=== PATIENT | male | born 1945 | race Caucasian/White ===

== ENCOUNTER 2021-03-04 18:20 | Inpatient (IN) | payer MEDICARE, OTHER ==
--- NOTE | 2021-03-04 18:59 | ED ---
General Adult HPI - General Chief complaint: Neuro Symptoms/Deficit Stated complaint: Poss stroke Time Seen by Provider: 03/04/21 18:25 Source: patient, family, RN notes reviewed, old records reviewed Mode of arrival: wheelchair Limitations: physical limitation - History of Present Illness Initial comments: This is a 76-year-old male who presents to the emergency department complaining of right-sided sensation changes. Patient states it started yesterday at 9 AM he noticed a decreased sensation in his right arm and his right leg. Patient also states he's had intermittent loss of vision in the lateral right visual field. Patient also was noticed some memory loss since yesterday as well per the states he asks the same question multiple times and just today. Patient has noticed he is not remembering things well suggested as well. Patien t denies any headache. Patient denies any recent fever chills or cough. Patient states he has a past medical history significant for heart attacks and multiple stent placements. Patient denies any high blood pressure high cholesterol smoking. Patient denies any diabetes. Patient denies any chest pain or palpitations. Patient denies any difficulty breathing shortness of breath. Patient denies any abdominal pain patient denies nausea vomiting diarrhea. Patient denies any swelling to legs or calf tenderness. Patient states his symptoms of decreased sensation seemed to improve but they are still there in the arm and the leg the visual deficit in the right lateral field is gone at the moment but the states his memory short-term memory goes is still there. - Related Data Home Medications Medication Instructions Recorded Confirmed Aspirin EC [Ecotrin] 325 mg PO DAILY 03/04/21 03/04/21 Cyanocobalamin [Vitamin B-12] 500 mcg PO DAILY 03/04/21 03/04/21 Ubidecarenone [Co Q-10] 200 mg PO DAILY 03/04/21 03/04/21 Allergies Allergy/AdvReac Type Severity Reaction Status Date / Time No Known Allergies Allergy Verified 03/04/21 19:51 Review of Systems ROS Statement: Those systems with pertinent positive or pertinent negative responses have been documented in the HPI. ROS Other: All systems not noted in ROS Statement are negative. Past Medical History Past Medical History: Coronary Artery Disease (CAD) History of Any Multi-Drug Resistant Organisms: None Reported Past Surgical History: Heart Catheterization With Stent Additional Past Surgical History / Comment(s): stents x 5 Past Psychological History: No Psychological Hx Reported Smoking Status: Never smoker Past Alcohol Use History: None Reported Past Drug Use History: None Reported General Exam - General Exam Comments Initial Comments: GENERAL: Patient is well-developed and well-nourished. Patient is nontoxic and well- hydrated and is in no acute distress. ENT: Neck is soft and supple. No significant lymphadenopathy is noted. Oropharynx is clear. Moist mucous membranes. Neck has full range of motion without eliciting any pain. EYES: The sclera were anicteric and conjunctiva were pink and moist. Extraocular movements were intact and pupils were equal round and reactive to light. Eyelids were unremarkable. PULMONARY: Unlabored respirations. Good breath sounds bilaterally. No audible rales rhonchi or wheezing was noted. CARDIOVASCULAR: There is a regular rate and rhythm without any murmurs gallops or rubs. ABDOMEN: Soft and nontender with normal bowel sounds. SKIN: Skin is clear with no lesions or rashes and otherwise unremarkable. NEUROLOGIC: Patient is alert and oriented x3. Cranial nerves II through XII are grossly intact. Patient has no visual field deficit at the moment. Patient has decreased sensation in the arm and the leg but he can still feel light touch. He states he does not feel the same as other side. states on the way here he asked the same question 4 times. MUSCULOSKELETAL: Normal extremities with adequate strength and full range of motion. LYMPHATICS: No significant lymphadenopathy is noted PSYCHIATRIC: Normal psychiatric evaluation. Limitations: physical limitation Course Vital Signs 03/04/21 03/04/21 18:24 19:48 Temperature 97.7 F Pulse Rate 66 64 Respiratory 20 20 Rate Blood Pressure 163/76 191/105 O2 Sat by Pulse 97 96 Oximetry Medical Decision Making - Medical Decision Making EKG shows sinus rhythm with occasional PAC at 65 bpm NV interval 270 QRS is 98 QT interval 46 QTC is 422 per patient's EKG shows no ST segment elevation or depression. CT of the head showed 2 old infarcts on the left one of the temporal region where the occipital area. No acute abnormality was noted. CT of the head and neck showed possible stenosis in the posterior circulation no aneurysms noted. I spoke with Dr. Martinez at this point he wanted the patient started on 150 mg of Plavix and 75 mg Plavix daily - Lab Data Result diagrams: 03/04/21 18:55 03/04/21 18:55 Lab Results 03/04/21 03/04/21 03/04/21 Range/Units 18:55 18:55 18:55 WBC 6.7 (3.8-10.6) k/uL RBC 5.06 (4.30-5.90) m/uL Hgb 16.5 (13.0-17.5) gm/dL Hct 47.2 (39.0-53.0) % MCV 93.4 (80.0-100.0) fL MCH 32.6 (25.0-35.0) pg MCHC 35.0 (31.0-37.0) g/dL RDW 12.6 (11.5-15.5) % Plt Count 232 (150-450) k/uL MPV 7.8 Neutrophils % 70 % Lymphocytes % 18 % Monocytes % 7 % Eosinophils % 3 % Basophils % 1 % Neutrophils # 4.7 (1.3-7.7) k/uL Lymphocytes # 1.2 (1.0-4.8) k/uL Monocytes # 0.4 (0-1.0) k/uL Eosinophils # 0.2 (0-0.7) k/uL Basophils # 0.1 (0-0.2) k/uL PT 9.7 (9.0-12.0) sec INR 0.9 (<1.2) APTT 24.7 (22.0-30.0) sec Sodium 139 (137-145) mmol/L Potassium 4.2 (3.5-5.1) mmol/L Chloride 106 (98-107) mmol/L Carbon Dioxide 22 (22-30) mmol/L Anion Gap 11 mmol/L BUN 23 H (9-20) mg/dL Creatinine 0.99 (0.66-1.25) mg/dL Est GFR (CKD-EPI)AfAm 85 (>60 ml/min/1.73 sqM) Est GFR (CKD-EPI)NonAf 73 (>60 ml/min/1.73 sqM) Glucose 122 H (74-99) mg/dL Calcium 9.7 (8.4-10.2) mg/dL Total Bilirubin 0.6 (0.2-1.3) mg/dL AST 25 (17-59) U/L ALT 14 (4-49) U/L Alkaline Phosphatase 73 (38-126) U/L Troponin I (0.000-0.034) ng/mL Total Protein 6.8 (6.3-8.2) g/dL Albumin 4.4 (3.5-5.0) g/dL 03/04/21 Range/Units 18:55 WBC (3.8-10.6) k/uL RBC (4.30-5.90) m/uL Hgb (13.0-17.5) gm/dL Hct (39.0-53.0) % MCV (80.0-100.0) fL MCH (25.0-35.0) pg MCHC (31.0-37.0) g/dL RDW (11.5-15.5) % Plt Count (150-450) k/uL MPV Neutrophils % % Lymphocytes % % Monocytes % % Eosinophils % % Basophils % % Neutrophils # (1.3-7.7) k/uL Lymphocytes # (1.0-4.8) k/uL Monocytes # (0-1.0) k/uL Eosinophils # (0-0.7) k/uL Basophils # (0-0.2) k/uL PT (9.0-12.0) sec INR (<1.2) APTT (22.0-30.0) sec Sodium (137-145) mmol/L Potassium (3.5-5.1) mmol/L Chloride (98-107) mmol/L Carbon Dioxide (22-30) mmol/L Anion Gap mmol/L BUN (9-20) mg/dL Creatinine (0.66-1.25) mg/dL Est GFR (CKD-EPI)AfAm (>60 ml/min/1.73 sqM) Est GFR (CKD-EPI)NonAf (>60 ml/min/1.73 sqM) Glucose (74-99) mg/dL Calcium (8.4-10.2) mg/dL Total Bilirubin (0.2-1.3) mg/dL AST (17-59) U/L ALT (4-49) U/L Alkaline Phosphatase (38-126) U/L Troponin I 0.017 (0.000-0.034) ng/mL Total Protein (6.3-8.2) g/dL Albumin (3.5-5.0) g/dL Critical Care Time Critical Care Time: Yes Total Critical Care Time: 35 Disposition Clinical Impression: Cerebrovascular accident (CVA) Disposition: ADMITTED IP TO THIS HOSP Referrals: Ameya Shane MD [Primary Care Provider] - 1-2 days Time of Disposition: 20:20
[2021-03-04 19:06] LABS: Basophils # (A) 0.1 k/uL (0-0.2); Basophils % (A) 1 %; Eosinophils # (A) 0.2 k/uL (0-0.7); Eosinophils % (A) 3 %; HCT 47.2 % (39.0-53.0); HGB 16.5 gm/dL (13.0-17.5); Lymphocytes # (A) 1.2 k/uL (1.0-4.8); Lymphocytes % (A) 18 %; MCH 32.6 pg (25.0-35.0); MCV 93.4 fL (80.0-100.0); Mean Platelet Volume 7.8; Monocytes # (A) 0.4 k/uL (0-1.0); Monocytes % (A) 7 %; Neutrophils # (A) 4.7 k/uL (1.3-7.7); Neutrophils % (A) 70 %; Platelet Count 232 k/uL (150-450); RBC 5.06 m/uL (4.30-5.90); RDW 12.6 % (11.5-15.5); WBC 6.7 k/uL (3.8-10.6)
[2021-03-04 19:16] LABS: INR 0.9 (<1.2); Partial Thromboplastin Time 24.7 sec (22.0-30.0); Prothrombin Time 9.7 sec (9.0-12.0)
[2021-03-04 19:22] LABS: Albumin 4.4 g/dL (3.5-5.0); Calcium 9.7 mg/dL (8.4-10.2); Potassium 4.2 mmol/L (3.5-5.1); Total Bilirubin 0.6 mg/dL (0.2-1.3); Total Protein 6.8 g/dL (6.3-8.2)
--- NOTE | 2021-03-04 19:35 | CT ---
EXAMINATION TYPE: CT brain wo con for TPA DATE OF EXAM: 03/04/2021 COMPARISON: None HISTORY: Right sided numbness and visual disturbance. CT DLP: 1177.8 mGycm Automated exposure control for dose reduction was used. Images obtained of the brain without contrast. There is cerebral cortical atrophy. There is no mass effect nor midline shift. There is no sign of in tracranial hemorrhage. There is 2 cm area of cortical hypodensity medial left occipital lobe consiste nt with an old cortical infarct. There is a similar 1.7 cm area of hypodensity in the deep left tempo ral lobe cortex. The calvarium is intact. Skull base is intact. IMPRESSION: Old left small occipital lobe cortical infarct. Old small posterior deep left temporal lobe ischemic infarct. No hemorrhage.
--- NOTE | 2021-03-04 20:00 | CT ---
EXAMINATION TYPE: CT angio head neck DATE OF EXAM: 03/04/2021 COMPARISON: None HISTORY: Right sided numbness and visual disturbance. CT DLP: 504 mGycm Automated exposure control for dose reduction was used. CONTRAST: Performed with IV Contrast, patient injected with 65 mL of Isovue 370. Images obtained from the aortic arch to the vertex of the brain with IV contrast. There are 3-D post processed images. There is normal branching pattern of the great vessels on the aortic arch. There is atheromatous carver ge in the aortic arch. There is no aneurysm. There is arterial flow in both subclavian arteries. Ther e is some plaque formation and mild luminal narrowing proximal left subclavian artery. There is arterial flow in the common internal and external carotid arteries bilaterally. There is art erial flow in both vertebral arteries. There is no evidence of carotid or vertebral artery aneurysm o r dissection. There is some kinking of the proximal left internal carotid artery. Lumen narrowing is 50%. I see no evidence of carotid or vertebral artery aneurysm or dissection. I see no hemodynamic st enosis. There is arterial flow in the vertebrobasilar artery system. Basilar artery fills mostly from the lef t side. There is arterial flow in the anterior middle and posterior cerebral arteries bilaterally. There is n o evidence of intracranial aneurysm or neovascularity. There is diminished size of the distal posteri or cerebral arteries bilaterally. The venous sinuses show normal contrast opacification. There is no evidence of mass effect. IMPRESSION: No evidence of hemodynamic stenosis of the neck. There is somewhat diminished arterial size of the posterior cerebral arteries that could relate to st enosis. No aneurysm.
--- NOTE | 2021-03-04 20:02 | XR ---
EXAMINATION TYPE: XR chest 2V DATE OF EXAM: 03/04/2021 COMPARISON: NONE HISTORY: Altered mental status TECHNIQUE: 2 views FINDINGS: Heart and mediastinum are normal. Lungs are clear. Diaphragm is normal. Bony thorax is inta ct. There are chest leads. IMPRESSION: Normal chest. Normal heart.
[2021-03-04] MEDS ORDERED: CLOPIDOGREL 75 MG TAB PO STA (20:18)
[2021-03-04] MEDS ORDERED: ASPIRIN 325 MG TAB PO STA (20:20)
[2021-03-05] MEDS: ASPIRIN 325 MG TAB PO SCH (08:16)
--- NOTE | 2021-03-05 09:24 | P.CNNES ---
History of Present Illness Consult date: 03/04/21 Requesting physician: Andrews Felder Reason for Consult: CVA History of Present Illness: Patient is a 76-year-old male with history of coronary artery disease, otherwise healthy, came to the hospital for neurological symptoms. Patient states that almost for the past 1 month, he has been noticing some dark spot in the visual field on the right side. Sometimes in order to see the TV on the right visual field, he has to turn his head to the right in order to see otherwise it misses in his vision. He saw an eye doctor, and was told that his vision is 20/20 and may have some cataract on the right. Patient's also mentioned that on 02/28/2021 patient was holding a cup of coffee when the cup slipped off his right hand, but they did not feel anything concerning otherwise. Patient states that yesterday he woke up at 6 AM in usual state of health. At around 9 AM he noticed numbness and tingling of the right side involving the face arm and leg. He just felt funny, not normal feeling. The symptoms on the face persisted for couple hours, but symptoms on the right side of arm and leg persisted. He did not seek medical attention. This morning patient's decided to take him to the hospital. As they were coming to the hospital, he asked the same question 4 times "where are we going". He still has some numbness of the right arm in the ulnar distribution. He denies any problem with balance, slurred speech, facial droop or focal weakness. Vital signs on arrival blood pressure 163/76, pulse rate 66 temperature 97.7. Computed tomography scan of head showed old left small occipital lobe cortical infarct. Old small posterior deep left temporal lobe ischemic infarct (to me it appears subacute). No hemorrhage. Patient underwent CTA, which revealed no evidence of hemodynamic stenosis. There is somewhat diminished arterial size of posterior cerebral arteries that could relate to stenosis. No Aneurysm. Chest x-ray showed no acute process. EKG shows sinus rhythm with premature atrial complexes. Minimal voltage criteria for LVH, may be normal variant. Septal infarct, age undetermined. Patient denies history of hypertension for diabetes. Never smoked. He has history of 5 stents in the coronary arteries. He had CO on 01/02/2006. Patient does take aspirin 325 mg, B12, CoQ10. Review of Systems Patient denies any chest pain shortness of breath wheezing or cough. Denies any diplopia. He does have visual disturbance. Denies any trauma. His balance is fine. No history of memory issues. Patient is hard of hearing. All other review of systems reviewed and unremarkable. Past Medical History Past Medical History: Coronary Artery Disease (CAD), Myocardial Infarction (CO) Last Myocardial Infarction Date:: 2005 History of Any Multi-Drug Resistant Organisms: None Reported Past Surgical History: Heart Catheterization With Stent Additional Past Surgical History / Comment(s): stents x 5 Past Anesthesia/Blood Transfusion Reactions: No Reported Reaction Date of Last Stent Placement:: 2009 Past Psychological History: No Psychological Hx Reported Smoking Status: Never smoker Past Alcohol Use History: None Reported Past Drug Use History: None Reported - Past Family History Father Family Medical History: Myocardial Infarction (CO) Mother Family Medical History: Myocardial Infarction (CO) Medications and Allergies Home Medications Medication Instructions Recorded Confirmed Type Aspirin EC [Ecotrin] 325 mg PO DAILY 03/04/21 03/04/21 History Cyanocobalamin [Vitamin B-12] 500 mcg PO DAILY 03/04/21 03/04/21 History Ubidecarenone [Co Q-10] 200 mg PO DAILY 03/04/21 03/04/21 History Allergies Allergy/AdvReac Type Severity Reaction Status Date / Time No Known Allergies Allergy Verified 03/04/21 19:51 Physical Examination - Vital Signs Vital Signs: Vital Signs Temp Pulse Pulse Resp BP BP Pulse Ox 03/05/21 08:00 98.0 F 66 18 162/87 95 03/05/21 04:00 97.3 F L 67 16 174/97 96 03/05/21 02:00 56 L 03/04/21 23:46 97.7 F 56 L 16 190/93 96 03/04/21 23:43 97.7 F 56 L 16 190/93 96 03/04/21 23:25 68 17 177/91 95 03/04/21 23:24 66 16 169/107 97 03/04/21 22:00 65 18 181/114 95 03/04/21 21:00 68 20 174/85 98 03/04/21 20:00 59 L 16 184/98 95 03/04/21 19:48 64 20 191/105 96 03/04/21 18:24 97.7 F 66 20 163/76 97 Intake and Output 03/04/21 03/05/21 03/05/21 22:59 06:59 14:59 Other: Voiding Method Toilet Toilet # Voids 1 Weight 87.09 kg 87.09 kg Patient is a young-looking elderly male in no acute distress. Patient is alert awake oriented to time place and person. Speech and language functions are normal. Attention, concentration and fund of knowledge is adequate. On cranial examination, pupils are equal, round and reacting to light, visual bethea are full on confrontation, extraocular muscles are intact with no nystagmus. Face is symmetric, tongue protrudes to the midline. Palatal elevation and sensation normal, hearing is at least moderately decreased and shoulder shrug normal, facial sensation normal. Shoulder shrug normal. On muscle strength testing, there is no pronator drift and the strength is normal in arms and legs distally and proximally. Deep tendon reflexes are 3 in the upper limbs, 2+ at the knees, 2 ankles and plantars downgoing bilaterally. Sensory to touch is equal with no neglect. Cerebellar function showed no ataxia for [id number] testing. No dysdiadochokinesia. Tone and bulk of muscles normal. Gait normal. On general examination, there is no carotid bruit or murmur, S1-S2 audible. Abdomen is soft nontender. Chest is clear. Peripheral pulses are present. No edema. Results - Laboratory Findings CBC and BMP: 03/04/21 18:55 03/04/21 18:55 Abnormal Lab Findings: Abnormal Labs 03/04/21 18:55 BUN 23 H Glucose 122 H Assessment and Plan Assessment: * Stroke/TIA manifesting with numbness of the right side of the body. * Subacute left occipital lobe infarct with visual disturbance on the right s vaibhav, probably a month ago * Hypertension * Coronary artery disease * Hard of hearing Plan: * Patient has been having recurrent stroke/TIA. Patient is already on aspirin 325 mg. We will give Plavix 150 mg loading dose, followed by 75 mg daily. * MRI of the brain evaluate for acute stroke. * Fasting a.m. lipid panel, hemoglobin A1c * 2-D echo with bubble study. * Continue neuro checks. * Permissive hypertension. * Telemetric monitoring. * We will follow. Discussed with Dr. Felder in detail.
[2021-03-05 09:39] LABS: Chol/HDL Ratio 4.94; LDL Cholesterol,Calculated 99.2 mg/dL (0.0-131.0); VLDL Calculation 38.8 mg/dL (5.00-40.00)
--- NOTE | 2021-03-05 10:33 | ECHOF ---
Referral Reason: MEASUREMENTS -------- HEIGHT: 180.3 cm WEIGHT: 87.1 kg BP: IVSd: 1.4 cm (0.6 - 1.1) LVIDd: 3.8 cm (3.9 - 5.3) LVPWd: 1.4 cm (0.6 - 1.1) EDV(Teich): 62 ml IVSs: 1.7 cm LVIDs: 1.8 cm LVPWs: 2.1 cm %IVS Thck: 26 % ESV(Teich): 10 ml EF(Teich): 84 % %FS: 52 % SV(Teich): 52 ml RVIDd: 2.3 cm (< 3.3) IVC: 19.76 mm Ao Diam: 3.8 cm (2.0 - 3.7) LA Diam: 2.5 cm (2.7 - 3.8) AV Cusp: 2.0 cm (1.5 - 2.6) EPSS: 1.0 cm MV E Joaquin: 0.49 m/s MV DecT: 271 ms MV Dec Marion: 1.8 m/s MV A Joaquin: 0.92 m/s MV E/A Ratio: 0.53 MV PHT: 79 ms MR Vmax: 1.25 m/s MR maxP.20 mmHg AV Vmax: 1.10 m/s AV maxP.88 mmHg TR Vmax: 1.96 m/s TR maxP.33 mmHg RAP: 15.00 mmHg RVSP: 30.33 mmHg MV EF SLOPE: 31.76 mm/s (70 - 150) MV EXCURSION: 14.92 mm (> 18.000) FINDINGS -------- This was a technically difficult study with suboptimal views. The left ventricular size is normal. There is moderate concentric left ventricular hypertrophy. O verall left ventricular systolic function is low-normal with, an EF between 50 - 55 %. Basal infero lateral hypokinesis. The right ventricle is normal in size. The left atrial size is normal. The right atrial size is normal. Anshul used Unable to perform bubblr study due to poor suboptimal images. The aortic valve is trileaflet and appears structurally normal. The mitral valve is normal. There is trace mitral regurgitation. The tricuspid valve appears structurally normal. Trace tricuspid regurgitation present. Right iva tricular systolic pressure is normal at < 35 mmHg. There is no pulmonic regurgitation present. The aortic root size is normal. The inferior vena cava is mildly dilated. There is no pericardial effusion. CONCLUSIONS -------- 1. The left ventricular size is normal. 2. There is moderate concentric left ventricular hypertrophy. 3. Overall left ventricular systolic function is low-normal with, an EF between 50 - 55 %. 4. Basal inferolateral hypokinesis. 5. Lumason used 6. Unable to perform bubblr study due to poor suboptimal images. 7. There is trace mitral regurgitation. 8. Trace tricuspid regurgitation present. 9. The inferior vena cava is mildly dilated. 10. There is no pericardial effusion. OCULAR CARE AIDE: Cassidy Gonzalez RDCS
--- NOTE | 2021-03-05 13:59 | P.HPIM ---
History of Present Illness 76-year-old male was admitted for possibly of TIA. Patient came in with the right-sided visual field defects and oxfords in the right side while watching TV along with the weakness in the right side along with tingling numbness in the right side including face. All the symptoms resolved at this time. Patient does have history of coronary artery disease patient does state Aspirin at home. 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 Patient underwent extensive evaluation patient had a CT of the head and CT angios the head which is only significant for old small posterior left temporal lobe and the left occipital lobe infarcts. As per the neurologist these a subacute infarcts and patient's symptoms started yesterday chest x-ray did not show any significant abnormality echocardiogram was done which was showing wall watch temperament is probably from his previous myocardial infarction., Normal ejection fraction and no intraventricular thrombus. REVIEW OF SYSTEMS: CONSTITUTIONAL: No fever, no malaise, no fatigue. HEENT: No recent visual problems or hearing problems. Denied any sore throat. CARDIOVASCULAR: No chest pain, orthopnea, PND, no palpitations, no syncope. PULMONARY: No shortness of breath, no cough, no hemoptysis. GASTROINTESTINAL: No diarrhea, no nausea, no vomiting, no abdominal pain. NEUROLOGICAL: As mentioned in HPI HEMATOLOGICAL: Denies any bleeding or petechiae. GENITOURINARY: Denies any burning micturition, frequency, or urgency. MUSCULOSKELETAL/RHEUMATOLOGICAL: Denies any joint pain, swelling, or any muscle pain. ENDOCRINE: Denies any polyuria or polydipsia. The rest of the 14-point review of systems is negative. PHYSICAL EXAMINATION: GENERAL: The patient is alert and oriented x3, not in any acute distress. Well developed, well nourished. HEENT: Pupils are round and equally reacting to light. EOMI. No scleral icterus. No conjunctival pallor. Normocephalic, atraumatic. No pharyngeal erythema. No thyromegaly. CARDIOVASCULAR: S1 and S2 present. No murmurs, rubs, or gallops. PULMONARY: Chest is clear to auscultation, no wheezing or crackles. ABDOMEN: Soft, nontender, nondistended, normoactive bowel sounds. No palpable organomegaly. MUSCULOSKELETAL: No joint swelling or deformity. EXTREMITIES: No cyanosis, clubbing, or pedal edema. NEUROLOGICAL as mentioned in HPI SKIN: No rashes. Assessment and plan --Possible TIA: Patient had either old or subacute infarcts the left occipital and left temporal areas. MRA is pending. Patient most probably will be discharged later today on aspirin and Plavix for 3 weeks followed by just Plavix. Patient cannot take statin due to above-mentioned reasons -Coronary artery disease with the history of multiple stents in the past - frequent PVCs without any evidence of atrial fibrillation DVT prophylaxis: Ambulation Past Medical History Past Medical History: Coronary Artery Disease (CAD), Myocardial Infarction ([place]) Last Myocardial Infarction Date:: 2005 History of Any Multi-Drug Resistant Organisms: None Reported Past Surgical History: Heart Catheterization With Stent Additional Past Surgical History / Comment(s): stents x 5 Past Anesthesia/Blood Transfusion Reactions: No Reported Reaction Date of Last Stent Placement:: 2009 Past Psychological History: No Psychological Hx Reported Smoking Status: Never smoker Past Alcohol Use History: None Reported Past Drug Use History: None Reported - Past Family History Father Family Medical History: Myocardial Infarction ([place]) Mother Family Medical History: Myocardial Infarction ([place]) Medications and Allergies Home Medications Medication Instructions Recorded Confirmed Type Aspirin EC [Ecotrin] 325 mg PO DAILY 03/04/21 03/04/21 History Cyanocobalamin [Vitamin B-12] 500 mcg PO DAILY 03/04/21 03/04/21 History Ubidecarenone [Co Q-10] 200 mg PO DAILY 03/04/21 03/04/21 History Allergies Allergy/AdvReac Type Severity Reaction Status Date / Time No Known Allergies Allergy Verified 03/04/21 19:51 Physical Exam Vitals: Vital Signs Temp Pulse Pulse Resp BP BP Pulse Ox 03/05/21 12:00 83 18 144/75 98 03/05/21 08:00 98.0 F 66 18 162/87 95 03/05/21 04:00 97.3 F L 67 16 174/97 96 03/05/21 02:00 56 L 03/04/21 23:46 97.7 F 56 L 16 190/93 96 03/04/21 23:43 97.7 F 56 L 16 190/93 96 03/04/21 23:25 68 17 177/91 95 03/04/21 23:24 66 16 169/107 97 03/04/21 22:00 65 18 181/114 95 03/04/21 21:00 68 20 174/85 98 03/04/21 20:00 59 L 16 184/98 95 03/04/21 19:48 64 20 191/105 96 03/04/21 18:24 97.7 F 66 20 163/76 97 Intake and Output 03/04/21 03/05/21 03/05/21 22:59 06:59 14:59 Other: Voiding Method Toilet Toilet # Voids 1 Weight 87.09 kg 87.09 kg Results CBC & Chem 7: 03/04/21 18:55 03/04/21 18:55 Labs: Abnormal Lab Results - Last 24 Hours (Table) 03/04/21 03/04/21 Range/Units 18:55 18:55 BUN 23 H (9-20) mg/dL Glucose 122 H (74-99) mg/dL Triglycerides 194.0 H (0.0-149.0) mg/dL HDL Cholesterol 35.0 L (40.0-60.0) mg/dL Thrombosis Risk Factor Assmnt - Choose All That Apply Any of the Below Risk Factors Present?: Yes Each Factor Represents 1 point: Obesity (BMI >25) Other Risk Factors: Yes Each Risk Factor Represents 3 Points: Age 75 years or older Thrombosis Risk Factor Assessment Total Risk Factor Score: 4 Thrombosis Risk Factor Assessment Level: Moderate Risk
--- NOTE | 2021-03-05 14:02 | P.DS ---
Providers Date of admission: 03/04/21 20:20 Attending physician: Bob Lowe Consults: 03/04/21 20:21 Consult Physician Routine Consulting Provider: Monik Washington Consult Reason/Comments: CVA Do you want consulting provider notified?: Already Contacted Primary care physician: Ameya Shane [facility] Course: Refer to my HPI further details Plan - Discharge Summary Discharge Rx Participant: No New Discharge Prescriptions: New Aspirin 325 mg PO DAILY #21 tab Clopidogrel [Plavix] 75 mg PO DAILY #30 tab No Action Cyanocobalamin [Vitamin B-12] 500 mcg PO DAILY Aspirin EC [Ecotrin] 325 mg PO DAILY Ubidecarenone [Co Q-10] 200 mg PO DAILY Discharge Medication List Aspirin EC [Ecotrin] 325 mg PO DAILY 03/04/21 [History] Cyanocobalamin [Vitamin B-12] 500 mcg PO DAILY 03/04/21 [History] Ubidecarenone [Co Q-10] 200 mg PO DAILY 03/04/21 [History] Aspirin 325 mg PO DAILY #21 tab 03/05/21 [Rx] Clopidogrel [Plavix] 75 mg PO DAILY #30 tab 03/05/21 [Rx] Follow up Appointment(s)/Referral(s): Ameya Shane MD [Primary Care Provider] - 3 Days Nora Mckenzie MD [REFERRING] - 1 Week Discharge Disposition: HOME SELF-CARE
--- NOTE | 2021-03-05 17:50 | MR ---
EXAMINATION TYPE: MR brain wo con DATE OF EXAM: 03/05/2021 COMPARISON: 03/04/2021 HISTORY: Right sided numbness, visual disturbance. CONTRAST: Performed utilizing 0 mL intravenous Gadavist gadolinium contrast. TECHNIQUE: Multiplanar, multiecho imaging on a 3.0 Natacha magnet is performed through the brain. Stud y is performed within 24 hours of arrival to the hospital. The craniovertebral junction is normal. The pituitary is normal. Diffusion-weighted imaging is performed. Multiple hyperintensities are within the medial left tempor al lobe and within the inferior left occipital lobe compatible small focal areas of infarct. There is some hyperintensity within the left thalamus suspicious for small areas of acute ischemic change. Hyperintensities are evident at the location of the infarcts on the T2 and inversion recovery weighte d sequences. Some mild additional subcortical and periventricular white matter changes are present on inversion recovery which may be chronic white matter ischemic changes. No left occipital lobe infarct is present. Ventricles and sulci are prominent for the patient age. IMPRESSIONS: 1. Acute ischemic change within the medial temporal lobe, left occipital lobe, and couple of punctate areas within the thalamus. 2. Some additional chronic mild deep white matter changes may also be present. A Red level critical message alert has been initiated for Bob Lowe MD via the [employer] on 03/05/2021 5:47 PM. This message alert has been sent to Bob Lowe MD via the preferences provided by the clinician for the receipt of Radiology Critical Findings. Message ID [id number].
[2021-03-05] MEDS: CLOPIDOGREL 75 MG TAB PO SCH (18:26)
[2021-03-05 18:56] LABS: Hemoglobin A1C 4.9 % (4.0-6.0)
--- NOTE | 2021-03-06 09:01 | P.CRDCN ---
History of Present Illness Consult date: 03/06/21 History of present illness: HISTORY OF PRESENT ILLNESS: This is a 76-year-old male with a past medical history significant for coronary artery disease with previous stenting 5, last in 2009 in [place] per patient. Patient follows with a materials management clerk in [place], [place]. We have been asked to see the patient in consultation for event monitor. Patient examined at the bedside. Patient states he presented to the hospital secondary to numbness and tingling in his right upper and lower extremities. Patient denied any difficulty with his speech. Patient does report over the past 2 months he has been having some blurred vision. Patient states he was told he had a mini stroke about a month ago. Patient denies any history of atrial fibrillation. Telemetry currently reveals sinus mechanism with no signs of atrial fibrillation. The patient de nies chest pain or pressure. She denies shortness of breath. He denies feeling palpitations. Patient continues to report some numbness and tingling in his right arm. EKG reveals sinus mechanism with no signs of acute ischemia Chest xray normal chest. Normal heart. CT of the brain old left small occipital lobe cortical infarct. Old small posterior deep left temporal lobe ischemic infarct. No hemorrhage. MRI of the brain: Acute ischemic changes within the medial temporal lobe, left occipital lobe, and couple of punctate areas within the thalmus. Some additional chronic mild deep white matter changes may also be present. Echocardiogram completed revealed ejection fraction 50-55%. Basal inferior lateral hypokinesis, trace mitral regurgitation. Trace mitral regurgitation. Laboratory data: WBC 6.7. Hemoglobin 16.5. Platelet count 232. Sodium 139. Potassium 4.2. BUN 23. Creatinine 0.99. Current home cardiac medications include aspirin 325 mg daily REVIEW OF SYSTEMS: At the time of my exam: CONSTITUTIONAL: Denies fever or chills. HEENT: Denies blurred vision, vision changes, or eye pain. Denies hemoptysis CARDIOVASCULAR: Denies chest pain. Denies orthopnea. Denies PND. Denies palpitations RESPIRATORY: Denies shortness of breath. GASTROINTESTINAL: Denies abdominal pain. Denies nausea or vomiting. HEMATOLOGIC: Denies bleeding disorders. GENITOURINARY: Denies any blood in urine. SKIN: Denies pruitis. Denies rash. PHYSICAL EXAM: VITAL SIGNS: Reviewed. GENERAL: Well-developed in no acute distress. HEENT: Head is normocephalic. Pupils are equal, round. Sclerae anicteric. Mucous membranes of the mouth are moist. Neck supple. No JVD or thyromegaly LUNGS: Respirations even and unlabored. Lungs essentially clear to auscultation bilaterally. HEART: Regular rate and rhythm. S1 and S2 heard. ABDOMEN: Soft. Nondistended. Nontender. EXTREMITIES: Reports numbness and tingling in right upper extremity. Normal ran ge of motion. No clubbing or cyanosis. Peripheral pulses intact. No lower extremity edema NEUROLOGIC: Awake and alert. Oriented x 3. ASSESSMENT: Right-sided numbness and tingling Acute CVA Blurred vision 2-3 months Subacute CVA Coronary artery disease with previous stenting 5, last in 2009 per patient PLAN: Continue aspirin and plavix per neurology Add lipitor 40mg daily Continue telemetry monitoring Patient will receive an event monitor today Further recommendations pending patient course Nurse practitioner note has been reviewed by physician. Signing provider agrees with the documented findings, assessment, and plan of care. Past Medical History Past Medical History: Coronary Artery Disease (CAD), Myocardial Infarction ([place]) Last Myocardial Infarction Date:: 2005 History of Any Multi-Drug Resistant Organisms: None Reported Past Surgical History: Heart Catheterization With Stent Additional Past Surgical History / Comment(s): stents x 5 Past Anesthesia/Blood Transfusion Reactions: No Reported Reaction Date of Last Stent Placement:: 2009 Past Psychological History: No Psychological Hx Reported Smoking Status: Never smoker Past Alcohol Use History: None Reported Past Drug Use History: None Reported - Past Family History Father Family Medical History: Myocardial Infarction ([place]) Mother Family Medical History: [place]ocardial Infarction ([place]) Medications and Allergies Home Medications Medication Instructions Recorded Confirmed Type Aspirin EC [Ecotrin] 325 mg PO DAILY 03/04/21 03/04/21 History Cyanocobalamin [Vitamin B-12] 500 mcg PO DAILY 03/04/21 03/04/21 History Ubidecarenone [Co Q-10] 200 mg PO DAILY 03/04/21 03/04/21 History Aspirin 325 mg PO DAILY #21 tab 03/05/21 Rx Clopidogrel [Plavix] 75 mg PO DAILY #30 tab 03/05/21 Rx Allergies Allergy/AdvReac Type Severity Reaction Status Date / Time No Known Allergies Allergy Verified 03/04/21 19:51 Physical Exam Vitals: Vital Signs Temp Pulse Resp BP Pulse Ox 03/06/21 04:00 97.6 F 60 18 167/81 98 03/06/21 02:00 57 L 16 03/06/21 00:00 98.1 F 57 L 16 172/92 94 L 03/05/21 20:00 97.3 F L 61 18 142/87 95 03/05/21 16:00 85 18 158/95 98 03/05/21 12:00 83 18 144/75 98 Intake and Output 03/05/21 03/06/21 03/06/21 22:59 06:59 14:59 Intake Total 780 Output Total 480 Balance -480 780 Intake: Oral 780 Output: Urine 480 Other: Voiding Method Toilet Toilet # Voids 1 1 Weight 84.3 kg Results 03/04/21 18:55 03/04/21 18:55 Lipids 03/04/21 Range/Units 18:55 Triglycerides 194.0 H (0.0-149.0) mg/dL Cholesterol 173 (0-200) mg/dL HDL Cholesterol 35.0 L (40.0-60.0) mg/dL Cholesterol/HDL Ratio 4.94 Current Medications Generic Name Dose Route Start Last Admin Trade Name Freq PRN Reason Stop Dose Admin Aspirin 325 mg 03/05/21 09:00 03/05/21 08:16 Aspirin 325 Mg Tab PO 325 mg DAILY ROXIE Administration Clopidogrel Bisulfate 75 mg 03/05/21 17:00 03/05/21 18:26 Clopidogrel 75 Mg Tab PO 75 mg DAILY ROXIE Administration Famotidine 20 mg 03/06/21 09:00 Famotidine 20 Mg/2 Ml Vial IV Q12HR ROXIE Heparin Sodium (Porcine) 5,000 unit 03/06/21 09:00 Heparin Sodium,Porcine/Pf 5,000 Unit/0.5 Ml Syringe SQ Q12HR ROXIE Intake and Output 03/05/21 03/06/21 03/06/21 22:59 06:59 14:59 Intake Total 780 Output Total 480 Balance -480 780 Intake: Oral 780 Output: Urine 480 Other: Voiding Method Toilet Toilet # Voids 1 1 Weight 84.3 kg 03/04/21 18:55 03/04/21 18:55
[2021-03-06] MEDS: ASPIRIN 325 MG TAB PO SCH (09:33)
[2021-03-06] MEDS: CLOPIDOGREL 75 MG TAB PO SCH (09:33)
[2021-03-06] MEDS: FAMOTIDINE 20 MG/2 ML VIAL IV SCH ×2 (09:33→20:11)
[2021-03-06] MEDS: HEPARIN SODIUM,PORCINE/PF 5,000 UNIT/0.5 ML SYRINGE SQ SCH ×2 (09:33→20:11)
--- NOTE | 2021-03-06 14:42 | P.PN ---
Subjective 76-year-old male was admitted for possibly of TIA. Patient came in with the right-sided visual field defects and oxfords in the right side while watching TV along with the weakness in the right side along with tingling numbness in the right side including face. All the symptoms resolved at this time. Patient does have history of coronary artery disease patient does state Aspirin at home. 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 Patient underwent extensive evaluation patient had a CT of the head and CT angios the head which is only significant for old small posterior left temporal lobe and the left occipital lobe infarcts. As per the neurologist these a subacute infarcts chest x-ray did not show any significant abnormality echocardiogram was done which was showing wall watch temperament is probably from his previous myocardial infarction., Normal ejection fraction and no intraventricular thrombus. MRI of the brain showing acute ischemic changes within the medial temporal lobe, left occipital lobe and couple of punctate areas within the limits Objective - Vital Signs Vital signs: Vital Signs Temp 98.1 F 03/06/21 12:00 Pulse 68 03/06/21 14:00 Resp 18 03/06/21 14:00 BP 113/77 03/06/21 08:06 Pulse Ox 98 03/06/21 12:00 Intake & Output 03/05/21 03/06/21 03/06/21 18:59 06:59 18:59 Intake Total 2059 Output Total 480 Balance -480 2059 Weight 84.3 kg Intake: Oral 2059 Output: Urine 480 Other: Voiding Method Toilet Toilet Toilet # Voids 3 1 - Exam GENERAL: The patient is alert and oriented x3, not in any acute distress. Well developed, well nourished. HEENT: Pupils are round and equally reacting to light. EOMI. No scleral icterus. No conjunctival pallor. Normocephalic, atraumatic. No pharyngeal erythema. No thyromegaly. CARDIOVASCULAR: S1 and S2 present. No murmurs, rubs, or gallops. PULMONARY: Chest is clear to auscultation, no wheezing or crackles. ABDOMEN: Soft, nontender, nondistended, normoactive bowel sounds. No palpable organomegaly. MUSCULOSKELETAL: No joint swelling or deformity. EXTREMITIES: No cyanosis, clubbing, or pedal edema. NEUROLOGICAL: Gross neurological examination did not reveal any focal deficits. SKIN: No rashes. no petechiae. - Labs CBC & Chem 7: 03/04/21 18:55 03/04/21 18:55 Assessment and Plan Assessment: Acute multiple strokes,MRI of the brain showing acute ischemic changes within the medial temporal lobe, left occipital lobe and couple of punctate areas within the limits. Clinically complaining of from right UE numbness History of coronary artery disease Frequent PVC without evidence of atrial fibrillation Plan: This is a pleasant 76 years old male who presents with acute stroke. Continue with aspirin and Plavix per neurologist. Hopper Operator of the case, recommended event monitor Check carotid duplex Labs and medication were reviewed.. Continue same treatment. Continue with symptomatic treatment. Resume home medication. Monitor lytes and vitals. DVT and GI prophylaxis. Further recommendationsas per clinical course of the patient DVT prophylaxis: Subcutaneous heparin GI Prophylaxis: Pepcid
[2021-03-06] MEDS ORDERED: ATORVASTATIN 40 MG TAB PO SCH (21:00)
--- NOTE | 2021-03-06 21:21 | US ---
EXAMINATION TYPE: US carotid duplex BILAT DATE OF EXAM: 03/06/2021 COMPARISON: US, CT CLINICAL HISTORY: stroke. Stroke. Previous smoker. EXAM MEASUREMENTS: RIGHT: Peak Systolic Velocity (PSV) cm/sec ----- Right CCA: 80.9 ----- Right ICA: 68.8 ----- Right ECA: 100.2 ICA/CCA ratio: 0.9 RIGHT: End Diastole cm/sec ----- Right CCA: 9.5 ----- Right ICA: 8.4 ----- Right ECA: 0.0 LEFT: Peak Systolic Velocity (PSV) cm/sec ----- Left CCA: 75.8 ----- Left ICA: 89.7 ----- Left ECA: 97.1 ICA/CCA ratio: 1.2 LEFT: End Diastole cm/sec ----- Left CCA: 12.4 ----- Left ICA: 6.9 ----- Left ECA: 0.0 VERTEBRALS (direction of flow): Right Vertebral: Unable to visualize. Left Vertebral: Antegrade Rhythm: Arrhythmia Intimal thickening seen bilaterally. Plaque seen bilateral carotid bulbs and bilateral prox ICA and E CA. No elevated velocities at this time. IMPRESSION: There is antegrade flow in the left vertebral artery. No flow seen in the right vertebral artery. Bilateral plaque formation. There is some shadowing which obscures the detail. There is calcified art erial plaque. Images and measurements suggest 50% stenosis in both internal carotid arteries. Criteria for Assigning % of Stenosis / Diameter reduction (Estimation based on the indirect measurements of the internal carotid artery velocities (ICA PSV). 1. Normal (no stenosis)=ICA PSV < 125 cm/s: ratio < 2.0: ICA EDV<40 cm/s. 2. Less than 50% stenosis=ICA PSV < 125 cm/s: ratio < 2.0: ICA EDV<40 cm/s. 3. 50 to 69% stenosis=ICA PSV of 125 to 230 cm/s: ration 2.0 ? 4.0: ICA EDV 40-100 cm/s. 4. Greater than 70% stenosis to near occlusion= ICA PSV > 230 cm/s: ratio > 4.0: ICA EDV > 100 cm/s. 5. Near occlusion= ICA PSV velocities may be low or undetectable: variable ratio and ICA EDV. 6. Total occlusion=unable to detect flow.
[2021-03-07] MEDS: HEPARIN SODIUM,PORCINE/PF 5,000 UNIT/0.5 ML SYRINGE SQ SCH ×2 (09:09→20:50)
[2021-03-07] MEDS: FAMOTIDINE 20 MG TAB PO SCH ×2 (09:09→20:50)
[2021-03-07] MEDS: ASPIRIN 81 MG PO SCH (09:09)
[2021-03-07] MEDS: CLOPIDOGREL 75 MG TAB PO SCH (09:09)
--- NOTE | 2021-03-07 10:05 | P.PN ---
Subjective Progress Note Date: 03/05/21 Patient was seen in the ER. Patient's was also present today. Patient states he is feeling much better. Denies headache. Wants to go home. Denies any new focal symptoms. Patient is sitting in the chair fully dressed. Objective - Vital Signs Vital signs: Vital Signs Temp 98.3 F 03/07/21 08:00 Pulse 68 03/07/21 08:00 Resp 20 03/07/21 08:00 BP 169/79 03/07/21 08:00 Pulse Ox 97 03/07/21 08:00 Intake & Output 03/06/21 03/07/21 03/07/21 18:59 06:59 18:59 Intake Total 2240 Balance 2240 Weight 84.2 kg Intake: Oral 2240 Other: Voiding Method Toilet Toilet # Voids 1 - Exam On examination patient's mental status, speech and language functions are normal. Visual bethea are full. Face is symmetric. Muscle strength normal. - Labs CBC & Chem 7: 03/04/21 18:55 03/04/21 18:55 Assessment and Plan Assessment: * Acute ischemic Stroke involving the left medial temporal lobe, left occipital lobe and couple of punctate areas within the thalamus./TIA manifesting with numbness of the right side of the body. * Subacute left occipital lobe infarct with visual disturbance on the right side, probably a month ago * Hypertension * Hyperlipidemia * Coronary artery disease * Hard of hearing Plan: * MRI of the brain confirmed acute ischemic change within the left medial temporal lobe, left occipital lobe and couple of punctate areas within the thalamus. * Patient also has an evidence of old left occipital ischemic stroke, which likely occurred "a month ago", when he was experiencing visual field deficits on the right side. * Patient has been having recurrent stroke/TIA. Patient was already on aspirin 325 mg. patient has been started on dual antiplatelet medication. * Fasting a.m. lipid panel with cholesterol 173, LDL 99.2, HDL 35 and triglycerides 194. Recommend statins, but patient has severe side effects from statins to the point that he could not stand up or walk. Patient and his declined statins. May consider new agents. * Hemoglobin A1c 4.9 * 2-D echo with bubble study revealed normal left-ventricular size. Moderate concentric LVH. EF is low normal between 50-55%. Basal inferior lateral hypokinesis. Unable to perform bubble study due to poor suboptimal images. Trace MR. * Telemetric monitoring showing normal sinus rhythm but very frequent PVCs, PACs. * Patient will need cardioembolic workup. Recommend staying overnight, for event monitor placement, rule out paroxysmal A. fib. Patient may benefit from BRUNO as well, as the 2-D echo was not a good study. Discussed with Dr. Hernandez.
--- NOTE | 2021-03-07 10:14 | P.PN ---
Subjective Progress Note Date: 03/06/21 Patient was seen via tele-neurology. Patient is sitting in the recliner, very comfortable, in no acute distress. Denies headache. Denies any focal symptoms. Wants to go home. Patient had undergone cardiology consultation, who has cleared the patient. Event monitor has been started. Per his , his memory functions have improved from yesterday. Objective - Vital Signs Vital signs: Vital Signs Temp 98.3 F 03/07/21 08:00 Pulse 68 03/07/21 08:00 Resp 20 03/07/21 08:00 BP 169/79 03/07/21 08:00 Pulse Ox 97 03/07/21 08:00 Intake & Output 03/06/21 03/07/21 03/07/21 18:59 06:59 18:59 Intake Total 2240 240 Balance 2240 240 Weight 84.2 kg Intake: Oral 2240 240 Other: Voiding Method Toilet Toilet # Voids 1 - Exam On examination patient's mental status, speech and language functions are normal. Visual bethea are full. Face is symmetric. Muscle strength normal. Gait is normal. No sensory loss. No ataxia. - Labs CBC & Chem 7: 03/04/21 18:55 03/04/21 18:55 Assessment and Plan Assessment: * Acute ischemic stroke involving the left medial temporal lobe, left occipital lobe and couple of punctate areas within the thalamus. His symptoms have mostly resolved with NIH stroke scale is 0. * Subacute left occipital lobe infarct with visual disturbance on the right side, probably a month ago * Hypertension * Hyperlipidemia * Coronary artery disease * Hard of hearing Plan: * MRI of the brain confirmed acute ischemic change within the left medial temporal lobe, left occipital lobe and couple of punctate areas within the thalamus. * Patient also has an evidence of chronic left occipital ischemic stroke, which likely occurred "a month ago", when he was experiencing visual field deficits on the right side. * Patient has been having recurrent stroke/TIA. Patient was already on aspirin 325 mg. patient has been started on dual antiplatelet medication. However he needs to be ruled out for any embolic source. * Fasting a.m. lipid panel with cholesterol 173, LDL 99.2, HDL 35 and triglycerides 194. Recommend statins, but patient has severe side effects from statins to the point that he could not stand up or walk. Patient and his declined statins. May consider new agents. * Hemoglobin A1c 4.9 * 2-D echo with bubble study revealed normal left-ventricular size. Moderate concentric LVH. EF is low normal between 50-55%. Basal inferior lateral hypokinesis. Unable to perform bubble study due to poor suboptimal images. Trace MR. * Event monitor has been placed. Recommend BRUNO to rule out embolic source, as a transthoracic echo was of poor study. * Discussed with Dr. Rubi in detail.
--- NOTE | 2021-03-07 10:35 | P.PN ---
Subjective Progress Note Date: 03/07/21 HISTORY OF PRESENT ILLNESS: This is a 76-year-old male with a past medical history significant for coronary artery disease with previous stenting 5, last in 2009 in [place] per patient. Patient follows with a electrostatic painter in [place], [place]. We have been asked to see the patient in consultation for event monitor. Patient examined at the bedside. Patient states he presented to the hospital secondary to numbness and tingling in his right upper and lower extremities. Patient denied any difficulty with his speech. Patient does report over the past 2 months he has been having some blurred vision. Patient states he was told he had a mini stroke about a month ago. Patient denies any history of atrial fibrillation. Telemetry currently reveals sinus mechanism with no signs of atrial fibrillation. The patient denies chest pain or pressure. She denies shortness of breath. He denies feeling palpitations. Patient continues to report some numbness and tingling in his right arm. EKG reveals sinus mechanism with no signs of acute ischemia Chest xray normal chest. Normal heart. CT of the brain old left small occipital lobe cortical infarct. Old small posterior deep left temporal lobe ischemic infarct. No hemorrhage. MRI of the brain: Acute ischemic changes within the medial temporal lobe, left occipital lobe, and couple of punctate areas within the thalmus. Some a dditional chronic mild deep white matter changes may also be present. Echocardiogram completed revealed ejection fraction 50-55%. Basal inferior lateral hypokinesis, trace mitral regurgitation. Trace mitral regurgitation. Laboratory data: WBC 6.7. Hemoglobin 16.5. Platelet count 232. Sodium 139. Potassium 4.2. BUN 23. Creatinine 0.99. Current home cardiac medications include aspirin 325 mg daily 03/07/2021 Patient seen and examined this morning at the bedside. Patient denies chest pain or pressure. He denies shortness of breath. He denies dizziness or lightheadedness. Telemetry reveals sinus mechanism. Patient has an event monitor placed yesterday. Vital signs are stable. PHYSICAL EXAM: VITAL SIGNS: Reviewed. GENERAL: Well-developed in no acute distress. HEENT: Head is normocephalic. Pupils are equal, round. Sclerae anicteric. Mucous membranes of the mouth are moist. Neck supple. No JVD or thyromegaly LUNGS: Respirations even and unlabored. Lungs essentially clear to auscultation bilaterally. HEART: Regular rate and rhythm. S1 and S2 heard. ABDOMEN: Soft. Nondistended. Nontender. EXTREMITIES: Normal range of motion. No clubbing or cyanosis. Peripheral pulses intact. No lower extremity edema NEUROLOGIC: Awake and alert. Oriented x 3. ASSESSMENT: Right-sided numbness and tingling Acute CVA Blurred vision 2-3 months Subacute CVA Coronary artery disease with previous stenting 5, last in 2009 per patient PLAN: Continue aspirin, Plavix, and Lipitor Continue telemetry monitoring Patient received 30 day event monitor yesterday BRUNO tomorrow with Dr. Mon. NPO at midnight Further recommendations pending patient course Nurse practitioner note has been reviewed by physician. Signing provider agrees with the documented findings, assessment, and plan of care. Objective - Vital Signs Vital signs: Vital Signs Temp 98.3 F 03/07/21 08:00 Pulse 68 03/07/21 08:00 Resp 20 03/07/21 08:00 BP 169/79 03/07/21 08:00 Pulse Ox 97 03/07/21 08:00 Intake & Output 03/06/21 03/07/21 03/07/21 18:59 06:59 18:59 Intake Total 2240 240 Balance 2240 240 Weight 84.2 kg Intake: Oral 2240 240 Other: Voiding Method Toilet Toilet # Voids 1 - Labs CBC & Chem 7: 03/04/21 18:55 03/04/21 18:55
--- NOTE | 2021-03-07 12:20 | P.PN ---
Subjective 76-year-old male was admitted for possibly of TIA. Patient came in with the right-sided visual field defects and oxfords in the right side while watching TV along with the weakness in the right side along with tingling numbness in the right side including face. All the symptoms resolved at this time. Patient does have history of coronary artery disease patient does state Aspirin at home. 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 Patient underwent extensive evaluation patient had a CT of the head and CT angios the head which is only significant for old small posterior left temporal lobe and the left occipital lobe infarcts. As per the neurologist these a subacute infarcts chest x-ray did not show any significant abnormality echocardiogram was done which was showing wall watch temperament is probably from his previous myocardial infarction., Normal ejection fraction and no intraventricular thrombus. MRI of the brain showing acute ischemic changes within the medial temporal lobe, left occipital lobe and couple of punctate areas within the limits 03/07/2021 Patient admitted with right upper extremity numbness which is a stable now. MRI showing left-sided acute stroke more than one site at medial temporal lobe, left occipital lobe and couple of punctate areas within the limits. I discussed the case with neurology service yesterday and they recommended BRUNO. Screening Technician on the case and further recommendation BRUNO can be done as an outpatient. Also patient carotid duplex showing no flow seen in the right vertebral artery. Bilateral carotid arteries Plaque suggesting 50% stenosis in both internal carotid arteries That he is hemodynamically stable blood pressure slightly on the high side 169/79 Showing elevated triglyceride at 194. Patient declined statin for side effects. Recommended alternative by neurology we added zetia, also add Norvasc for uncontrolled hypertension Patient currently continue with aspirin and Plavix Objective - Vital Signs Vital signs: Vital Signs Temp 98.3 F 03/07/21 08:00 Pulse 68 03/07/21 08:00 Resp 20 03/07/21 08:00 BP 169/79 03/07/21 08:00 Pulse Ox 97 03/07/21 08:00 Intake & Output 03/06/21 03/07/21 03/07/21 18:59 06:59 18:59 Intake Total 2240 240 Balance 2240 240 Weight 84.2 kg Intake: Oral 2240 240 Other: Voiding Method Toilet Toilet # Voids 1 - Exam GENERAL: The patient is alert and oriented x3, not in any acute distress. Well developed, well nourished. HEENT: Pupils are round and equally reacting to light. EOMI. No scleral icterus. No conjunctival pallor. Normocephalic, atraumatic. No pharyngeal erythema. No thyromegaly. CARDIOVASCULAR: S1 and S2 present. No murmurs, rubs, or gallops. PULMONARY: Chest is clear to auscultation, no wheezing or crackles. ABDOMEN: Soft, nontender, nondistended, normoactive bowel sounds. No palpable o rganomegaly. MUSCULOSKELETAL: No joint swelling or deformity. EXTREMITIES: No cyanosis, clubbing, or pedal edema. NEUROLOGICAL: Gross neurological examination did not reveal any focal deficits. SKIN: No rashes. no petechiae. - Labs CBC & Chem 7: 03/04/21 18:55 03/04/21 18:55 Assessment and Plan Assessment: Acute multiple strokes,MRI of the brain showing acute ischemic changes within the medial temporal lobe, left occipital lobe and couple of punctate areas within the limits. Clinically complaining of from right UE numbness. Rule out embolic source Bilateral internal carotid artery stenosis by 50% Dyslipidemia History of coronary artery disease Frequent PVC without evidence of atrial fibrillation Plan: This is a pleasant 76 years old male who presents with acute stroke. Continue with aspirin and Plavix per neurologist. Screening Technician of the case, recommended event monitor. Also they recommended BRUNO can be done as an outpatient Check carotid duplex consult vascular surgery team for internal carotid artery stenosis on both sides Add zetia and norvasc Labs and medication were reviewed.. Continue same treatment. Continue with symptomatic treatment. Resume home medication. Monitor lytes and vitals. DVT and GI prophylaxis. Further recommendationsas per clinical course of the patient DVT prophylaxis: Subcutaneous heparin GI Prophylaxis: Pepcid
[2021-03-07] MEDS: EZETIMIBE 10 MG TAB PO SCH (13:59)
[2021-03-07] MEDS: amLODIPine 5 MG TAB PO SCH (13:59)
--- NOTE | 2021-03-07 16:31 | P.GSCN ---
History of Present Illness Consult date: 03/07/21 History of present illness: Mr. hills is a 76-year-old male who initially showed to the ER for right visual field defects and weakness. He underwent workup and was found to have acute ischemic changes in the left medial temporal lobe as well as more chronic appearing lesions in the posterior septal lobe and areas of subacute stroke. He underwent a CT angiogram of the neck which showed no hemodynamic significant stenosis. At this point he states all of his symptoms have resolved and overall he feels quite well. He is awaiting a BRUNO tomorrow. He also states he is severely ALLERGIC to any sort of statin medication that is why he is not on them Past Medical History Past Medical History: Coronary Artery Disease (CAD), Myocardial Infarction ([place]) Last Myocardial Infarction Date:: 2005 History of Any Multi-Drug Resistant Organisms: None Reported Past Surgical History: Heart Catheterization With Stent Additional Past Surgical History / Comment(s): stents x 5 Past Anesthesia/Blood Transfusion Reactions: No Reported Reaction Date of Last Stent Placement:: 2009 Past Psychological History: No Psychological Hx Reported Smoking Status: Never smoker Past Alcohol Use History: None Reported Past Drug Use History: None Reported - Past Family History Father Family Medical History: Myocardial Infarction ([place]) Mother Family Medical History: Myocardial Infarction ([place]) Medications and Allergies Home Medications Medication Instructions Recorded Confirmed Type Aspirin EC [Ecotrin] 325 mg PO DAILY 03/04/21 03/04/21 History Cyanocobalamin [Vitamin B-12] 500 mcg PO DAILY 03/04/21 03/04/21 History Ubidecarenone [Co Q-10] 200 mg PO DAILY 03/04/21 03/04/21 History Aspirin 325 mg PO DAILY #21 tab 03/05/21 Rx Clopidogrel [Plavix] 75 mg PO DAILY #30 tab 03/05/21 Rx Allergies Allergy/AdvReac Type Severity Reaction Status Date / Time [id number] Reductase Allergy Unknown Verified 03/06/21 20:10 Inhibitor Surgical - Exam Vital Signs Temp Pulse Resp BP Pulse Ox 97.7 F 66 20 163/76 97 03/04/21 18:24 03/04/21 18:24 03/04/21 18:24 03/04/21 18:24 03/04/21 18:24 Gen. a pleasant cooperative male dressed in street clothes. No acute distress. He changes no cephalic atraumatic, extraocular motion intact. Heart appears regular in rate and rhythm. Lungs are clear bilaterally. Abdomen is soft, nontender nondistended. Extremity show no clubbing, cyanosis or edema. Normal mood and affect. Cranial nerve II through XII grossly intact Results CT angiogram is reviewed. Ultrasound of the carotid arteries is reviewed. Peak systolic velocities Left internal carotid artery 89.7, right internal carotid artery 68.8. Both confirm less than 50% stenosis - Labs 03/04/21 18:55 03/04/21 18:55 Assessment and Plan Assessment: Left medial temporal lobe ischemia Left occipital lobe ischemia No hemodynamically significant carotid stenosis Plan: At this point he does not appear to be any hemodynamically significant stenosis to the carotid arteries. Maintain best medical therapy with aspirin and Plavix. He is unable to tolerate a statin. Likely patient will only need annual surveillance of his carotid arteries going forward and this can be achieved by his primary care physician.
--- NOTE | 2021-03-07 18:49 | P.PN ---
Subjective Progress Note Date: 03/07/21 Patient was seen via tele-neurology. Patient is fully dressed, almost ready to go home. Patient has been not discharged because of need for BRUNO to evaluate for cardioembolic events. Denies headache. Denies any focal symptoms. Wants to go home. Event monitor has been started. Objective - Vital Signs Vital signs: Vital Signs Temp 98.3 F 03/07/21 08:00 Pulse 68 03/07/21 08:00 Resp 20 03/07/21 08:00 BP 169/79 03/07/21 08:00 Pulse Ox 97 03/07/21 08:00 Intake & Output 03/06/21 03/07/21 03/07/21 18:59 06:59 18:59 Intake Total 2240 480 Balance 2240 480 Weight 84.2 kg Intake: Oral 2240 480 Other: Voiding Method Toilet Toilet # Voids 1 3 - Exam On examination patient's mental status, speech and language functions are normal. Visual bethea are full. Face is symmetric. Muscle strength normal. Gait is normal. No sensory loss. No ataxia. - Labs CBC & Chem 7: 03/04/21 18:55 03/04/21 18:55 Assessment and Plan Assessment: * Acute ischemic stroke involving the left medial temporal lobe, left occipital lobe and couple of punctate areas within the thalamus. His symptoms have mostly resolved with NIH stroke scale is 0. * Subacute left occipital lobe infarct with visual disturbance on the right side, probably a month ago. Visual bethea normal at this time. * Hypertension * Hyperlipidemia * Coronary artery disease * Hard of hearing Plan: * MRI of the brain confirmed acute ischemic change within the left medial t emporal lobe, left occipital lobe and couple of punctate areas within the thalamus. * Patient also has an evidence of chronic left occipital ischemic stroke, which likely occurred "a month ago", when he was experiencing visual field deficits on the right side. * Patient has been having recurrent stroke/TIA. Patient was already on aspirin 325 mg. patient has been started on dual antiplatelet medication. However he needs to be ruled out for any embolic source. * Fasting a.m. lipid panel with cholesterol 173, LDL 99.2, HDL 35 and triglycerides 194. Recommend statins, but patient has severe side effects from statins to the point that he could not stand up or walk. Patient and his declined statins. May consider new agents. * Hemoglobin A1c 4.9 * 2-D echo with bubble study revealed normal left-ventricular size. Moderate concentric LVH. EF is low normal between 50-55%. Basal inferior lateral hypokinesis. Unable to perform bubble study due to poor suboptimal images. Trace MR. * Event monitor has been placed. Patient to undergo BRUNO to rule out embolic source, as a transthoracic echo was of poor study. If negative, then clear for discharge. * Dr. Timi Mckinney resuming neurology service in a.m. Please call neurology if any concerns.
[2021-03-08] MEDS ORDERED: fentaNYL (PF) 50 MCG/ML 2 ML AMP ONE (07:11)
[2021-03-08] MEDS ORDERED: BENZOCAINE SPRAY 1 CAN TOPICAL ONE (07:38)
[2021-03-08] MEDS ORDERED: SODIUM CHLORIDE 0.9% 1,000 ML IV ONE (07:38)
[2021-03-08] MEDS ORDERED: fentaNYL (PF) 50 MCG/ML 2 ML AMP IVP ONE (07:51)
[2021-03-08] MEDS ORDERED: MIDAZOLAM 2 MG/2 ML VIAL IVP ONE ×2 (07:51→07:52)
--- NOTE | 2021-03-08 08:57 | ECHOT ---
TRANSESOPHAGEAL ECHOCARDIOGRAM DATE OF SERVICE: 03/08/2021 PERFORMING PHYSICIAN: Doc Mon MD. PROCEDURE PERFORMED: Transesophageal echocardiogram. INDICATION: Embolic stroke. COMPLICATION: None. LEVEL OF SEDATION: Moderate with sedation length of 15 minutes. PROCEDURE DESCRIPTION: After obtaining an informed consent, the patient was brought to the transesophageal echocardiogram suite. A pulse oximetry and heart rate monitors were attached to the patient. Subsequently, the patient was turned into left lateral position. A bite guard was placed. Subsequently, the transesophageal echocardiogram probe was advanced through the bite guard to the mid esophagus where 2D echocardiogram images as well as color Doppler and pulse Doppler, and continuous-wave Doppler were obtained from multiple angles. The procedure was completed without any complication. FINDINGS: The left ventricular dimension and systolic function appeared to be within normal limits. The right ventricle appeared to be also within normal limits. The aortic valve appeared to be trileaflet valve without stenosis or regurgitation. The aortic root appeared to be dilated. The mitral valve seems to be normal with mild MR. There was mild tricuspid regurgitation seen and mild pulmonic insufficiency seen as well. The interatrial septum appeared to have a patent foramen ovale with clear-cut [id number] shunt identified on multiple contrast injection. CONCLUSION: 1. 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 2. Normal left atrial appendage without any evidence of thrombus. 3. Normal left ventricular dimension and systolic function. 4. Normal right ventricular dimension and systolic function. 5. Overall normal intracardiac valves. 6. Dilated aortic root. MMODL / IJN: [id number] /
[2021-03-08] MEDS: CLOPIDOGREL 75 MG TAB PO SCH (09:42)
[2021-03-08] MEDS: EZETIMIBE 10 MG TAB PO SCH (09:42)
[2021-03-08] MEDS: HEPARIN SODIUM,PORCINE/PF 5,000 UNIT/0.5 ML SYRINGE SQ SCH (09:42)
[2021-03-08] MEDS: ASPIRIN 81 MG PO SCH (09:42)
[2021-03-08] MEDS: FAMOTIDINE 20 MG TAB PO SCH (09:42)
[2021-03-08] MEDS: amLODIPine 5 MG TAB PO SCH (09:42)
[2021-03-08 11:49] VITALS: TEMP 97.4
[2021-03-08 13:22] VITALS: BP 129/68; PULSE 85; RESP 18
--- NOTE | 2021-03-08 14:54 | US ---
EXAMINATION TYPE: US venous doppler duplex LE BI DATE OF EXAM: 03/08/2021 2:28 PM COMPARISON: NONE CLINICAL HISTORY: Stroke. SIDE PERFORMED: Bilateral TECHNIQUE: The lower extremity deep venous system is examined utilizing real time linear array sonog ronnie with graded compression, doppler sonography and color-flow sonography. VESSELS IMAGED: Common Femoral Vein Deep Femoral Vein Greater Saphenous Vein * Femoral Vein Popliteal Vein Right Leg: Negative for DVT Left Leg: Negative for DVT IMPRESSION: No sonographic evidence for DVT in the bilateral lower extremities.
--- NOTE | 2021-03-08 23:32 | P.DS ---
Providers Date of admission: 03/04/21 20:20 Attending physician: Bob Lowe Consults: 03/04/21 20:21 Consult Physician Routine Consulting Provider: Monik Washington Consult Reason/Comments: CVA Do you want consulting provider notified?: Already Contacted 03/05/21 18:37 Consult Physician Routine Consulting Provider: Doc Mon Consult Reason/Comments: needs event monitor, stroke Do you want consulting provider notified?: Yes 03/07/21 13:30 Consult Physician Urgent Consulting Provider: Elodia Wagoner Consult Reason/Comments: B/L ICA stenosis Do you want consulting provider notified?: Yes Primary care physician: [facility] Course: Diagnoses: Acute multiple strokes,MRI of the brain showing acute ischemic changes within the medial temporal lobe, left occipital lobe and couple of punctate areas within the limits. Clinically complaining of from right UE numbness. Rule out embolic source Bilateral internal carotid artery stenosis by 50% Dyslipidemia History of coronary artery disease Frequent PVC without evidence of atrial Hospital course: 76-year-old male was admitted for possibly of TIA. Patient came in with the right-sided visual field defects and numbness in the right side while watching TV along with the weakness in the right side along with tingling numbness in the right side including face. All the symptoms resolved at this time. Patient does have history of coronary artery disease patient does state Aspirin at home. 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 Patient underwent extensive evaluation patient had a CT of the head and CT angios the head which is only significant for old small posterior left temporal lobe and the left occipital lobe infarcts. As per the neurologist these a subacute infarcts chest x-ray did not show any significant abnormality echocardiogram was done which was showing wall watch temperament is probably from his previous myocardial infarction., Normal eje ction fraction and no intraventricular thrombus. MRI of the brain showing acute ischemic changes within the medial temporal lobe, left occipital lobe and couple of punctate areas within the limits Because of multiple strokes neurologist recommended BRUNO which was done today by cert occupational therapy asst showing patent foramen ovale with shunt across the interatrial septum. However cert occupational therapy asst cleared patient for discharge and this can be fixed as an outpatient. Today both cert occupational therapy asst and neurologist for contacted by staff, they cleared the patient be discharged today on aspirin 3 week plus Plavix continuously. Patient's symptoms significantly improved including weakness and numbness, he only have very mild numbness in the distal forearm. He is walking in the room normally. No other neurological deficits. Ultrasound of the legs is negative for DVT Problems and management plan were discussed with the patient and at bedside and they verbalized understanding and acceptance Patient was found stable and can be discharged home however he needs follow-up as an outpatient. Patient was instructed to follow up with PCP Dr. Shane within one week and patient agrees to call and make his appointment Patient was instructed to follow up with Dr. Mon in one week, [facility] staff contacted office and stated they will contact the patient for an appointment for PFO closure. Also patient was instructed to follow up with neurologist Dr. Mckenzie in one week and patient agrees, office also will contact the patient for follow-up appointment Physical exam Gen: patient is a AAOx3, no distress CVS: S1-S2, RRR, no murmur Lungs: B/L CTA, no wheezing Abdomen: soft, no distention, no tenderness, positive bowel sounds Extremity: no leg edema or induration Neurology: Gen. nerves are grossly intact. 5/5 in all extremities. Sensation is intact with mild numbness in the lateral distal forearm and hand. Meningeal signs are absent. Gait is normal Time spent more than 35 minutes Plan - Discharge Summary Discharge Rx Participant: No New Discharge Prescriptions: New Aspirin 325 mg PO DAILY #21 tab Ezetimibe [Zetia] 10 mg PO DAILY #30 tab Clopidogrel [Plavix] 75 mg PO DAILY #30 tab amLODIPine [Norvasc] 5 mg PO DAILY #30 tab Continue Cyanocobalamin [Vitamin B-12] 500 mcg PO DAILY Ubidecarenone [Co Q-10] 200 mg PO DAILY Discontinued Aspirin EC [Ecotrin] 325 mg PO DAILY Discharge Medication List Cyanocobalamin [Vitamin B-12] 500 mcg PO DAILY 03/04/21 [History] Ubidecarenone [Co Q-10] 200 mg PO DAILY 03/04/21 [History] Aspirin 325 mg PO DAILY #21 tab 03/05/21 [Rx] Clopidogrel [Plavix] 75 mg PO DAILY #30 tab 03/05/21 [Rx] Ezetimibe [Zetia] 10 mg PO DAILY #30 tab 03/08/21 [Rx] amLODIPine [Norvasc] 5 mg PO DAILY #30 tab 03/08/21 [Rx] Follow up Appointment(s)/Referral(s): Doc Mon MD [STAFF PHYSICIAN] - 1 Week (Office will call to make a follow-up appointment with Dr. Mon regarding PFO closure) Ameya Shane MD [Primary Care Provider] - 3 Days (Please call to set up a follow-up appointment, RN was unable to get through.) Nora Mckenzie MD [REFERRING] - 1 Week (Office will call to set up a follow-up appointment) Patient Instructions/Handouts: Ischemic Stroke (DC), Self Care Measures After a Stroke (DC) Activity/Diet/Wound Care/Special Instructions: Heart healthy diet Activity is restricted till you see your doctor Discharge Disposition: HOME SELF-CARE Plan of Treatment: Continue taking Plavix. Take 325 mg Aspirin for 3 weeks, then stop.
== END 2021-03-08 16:09 | disposition home or self-care (01) | DRG 65 ==
LOC: EC 18:20 → 3SCARD 20:20
PROVIDERS: ADMIT Hospitalist; ATTEND Hospitalist
PROC: B24BZZ4 Ultrasonography of Heart with Aorta, Transesophageal (ICD-10-PCS; principal; 2021-03-08 07:30)
DX: I63.9 Cerebral infarction, unspecified (principal); Q21.1 Atrial septal defect; I10 Essential (primary) hypertension; H53.8 Other visual disturbances; H53.40 Unspecified visual field defects; R20.0 Anesthesia of skin; R29.701 NIHSS score 1; I65.23 Occlusion and stenosis of bilateral carotid arteries; I25.10 Atherosclerotic heart disease of native coronary artery without angina pectoris; I49.3 Ventricular premature depolarization; I49.1 Atrial premature depolarization; H91.90 Unspecified hearing loss, unspecified ear; H26.9 Unspecified cataract; E78.5 Hyperlipidemia, unspecified; I25.2 Old myocardial infarction; Z79.82 Long term (current) use of aspirin; Z79.899 Other long term (current) drug therapy; Z86.73 Personal history of transient ischemic attack (TIA), and cerebral infarction without residual deficits; Z95.5 Presence of coronary angioplasty implant and graft; Z82.49 Family history of ischemic heart disease and other diseases of the circulatory system
CPT/HCPCS: 36415; 70450; 70496; 70498; 70551; 71046; 80053; 80061; 83036; 84484; 85025; 85610; 85730; 93005; 93270; 93306; 93312; 93325; 93880; 93970; 99291

== ENCOUNTER 2021-03-26 10:48 | Day surgery (SDC) | payer MEDICARE ==
[2021-03-24 09:16] VITALS: BMI 27.0
[2021-03-26] MEDS ORDERED: ASPIRIN 325 MG TAB ONE (11:11)
[2021-03-26] MEDS ORDERED: amLODIPine 5 MG TAB PO STA (11:16)
[2021-03-26] MEDS ORDERED: SODIUM CHLORIDE 0.9% 1,000 ML IV ONE (11:19)
[2021-03-26] MEDS ORDERED: HEPARIN SODIUM 1,000 UN/ML (10ML VL) ONE (11:46)
[2021-03-26] MEDS ORDERED: LIDOCAINE 1% INJ 10MG/ML (20 ML MDV) ONE (11:46)
[2021-03-26] MEDS ORDERED: MIDAZOLAM 2 MG/2 ML VIAL IV ONE (12:28)
[2021-03-26] MEDS ORDERED: LIDOCAINE 1% INJ 10MG/ML (20 ML MDV) SQ ONE (12:29)
[2021-03-26] MEDS ORDERED: HYDROmorphone 0.5 MG/0.5 ML SYRINGE IVP ONE (12:40)
[2021-03-26] MEDS ORDERED: fentaNYL (PF) 50 MCG/ML 2 ML AMP ONE (12:56)
[2021-03-26] MEDS ORDERED: fentaNYL (PF) 50 MCG/ML 2 ML AMP IV ONE (12:57)
[2021-03-26] MEDS ORDERED: RX INFO: IV CONTRAST WAS GIVEN 1 EACH MISC MISCELLANE PRN (13:56)
[2021-03-26] MEDS ORDERED: SODIUM CHLORIDE 0.9% 1,000 ML IV SCH (14:00)
[2021-03-27] MEDS ORDERED: predniSONE 5 MG TAB PO SCH (09:00)
[2021-03-27] MEDS ORDERED: EZETIMIBE 10 MG TAB PO SCH (09:00)
[2021-03-27] MEDS ORDERED: ASPIRIN 325 MG TAB PO SCH (09:00)
[2021-03-27] MEDS ORDERED: CLOPIDOGREL 75 MG TAB PO SCH (09:00)
[2021-03-27] MEDS ORDERED: amLODIPine 5 MG TAB PO SCH (09:00)
--- NOTE | 2021-03-27 09:12 | P.PCN ---
Date of Procedure: 03/26/21 Operative Findings: Intracardiac echocardiogram imaging PERFORMING PHYSICIAN: Doc Mon MD, [facility] PROCEDURE PERFORMED: 1. Intracardiac echocardiogram imaging. 2. Contrast to study using agitated saline INDICATION: This is a 76-year-old gentleman who was diagnosed recently with a stroke. He underwent transesophageal echocardiogram which was concerning for patent formal pulmonary APPROACH: Right common femoral vein COMPLICATION: None. LEVEL OF SEDATION: Moderate with sedation length of 83 minutes. PROCEDURE DESCRIPTION: After obtaining informed consent, the patient was brought to the cardiac cathead worker. The right common femoral vein was cannulated x2 using micropuncture technique under ultrasound guidance, the micropuncture wire passed easily, then I placed two 8- Wallisian sheath in the right groin. Subsequently I cannulated the left common femoral vein with the same technique and I placed an 8-Wallisian sheath there as well. At that point, anticoagulation was initiated using heparin and the patient was given a bolus of 10,000 units of heparin IV with continuous ACT monitoring throughout the procedure. The intracardiac echocardiogram was advanced through the venous sheath all the way to the right atrium under fluoroscopy guidance. Attempting crossing the patent foramen ovale was performed using J-wire and using a Glidewire and using a glide advantage. That was unsuccessful. At that point we have suspicious about the process of PFO and for that reason we did agitated saline study and that came in to be negative for PFO and for that reason we decided to stop. The procedure was completed without any complication. POSTPROCEDURE MANAGEMENT: Continue the current medical regimen Follow-up with the patient
[2021-03-27 10:09] VITALS: BP 142/69; PULSE 80; RESP 18; TEMP 98.2
--- NOTE | 2021-03-27 13:12 | DS ---
DISCHARGE SUMMARY DATE OF ADMISSION: March 26, 2021 DISCHARGE DATE: March 27, 2021. BRIEF HISTORY: This is a very pleasant 76-year-old gentleman who was admitted to the hospital to undergo patent foramen ovale closure percutaneously. We did interrogate the interatrial septum using intracardiac echocardiogram and using contrast study and we could not identify any patent foramen ovale and because of that, the procedure was aborted. The patient had the procedure from the right groin which is soft and nontender and without any bruises. The patient is going to be discharged home and I will follow up with the patient in a week. MMODL / IJN: [id number] /
== END 2021-03-27 11:47 | disposition home or self-care (01) ==
LOC: CATHCVL 10:48 → 3SCARD 15:20 → CATHCVL 03-27 11:47
PROVIDERS: ATTEND Internal Medicine Interventional Cardiology
DX: I63.9 Cerebral infarction, unspecified (principal); I69.315 Cognitive social or emotional deficit following cerebral infarction; Q21.1 Atrial septal defect; E78.5 Hyperlipidemia, unspecified; I10 Essential (primary) hypertension; Z53.8 Procedure and treatment not carried out for other reasons
CPT/HCPCS: 93580; 93660; 93662; 86900; 86901; 86850; C1769 ×7; C1894; J2250; J0690; J2001; J3010; J1644; J1170